=== PATIENT | male | born 1990 | race Hispanic/Latino ===

== ENCOUNTER 2016-12-22 14:19 | Emergency (ER) | payer OTHER ==
[2016-12-22 14:27] VITALS: BMI 28.1
[2016-12-22 14:36] VITALS: BP 125/76; PULSE 98; RESP 18; TEMP 98.6; O2SAT 99
--- NOTE | 2016-12-22 15:02 | C.PDOC ---
History Of Present Illness 26 year old patient presents to the ED complaining of a frontal headache since yesterday. Patient feels pain behind her eyes exacerbated with eye movement. Patient denies fever, nausea, vomiting, photophobia, or sinus congestion. Patient also complains of a sudden onset of a rash to the left inner thigh since yesterday. Patient states it initially looked like bubbles, but now its worse due to thigh chafing. Patient denies any discharge. CO FRONTAL SCHWAB SINCE YEST. FEELS BEHIND EYES WORSE W EYE MOVEMENT. NO FEVER NV PHOTOPHOBIA. DENIES SINUS MARQUES ALSO W NEW ONSET RASH L INNER THIGH SINCE YEST. PS INITIALLY LOOKED LIKE BUBBLES , NOW WORSE DUE TO THIGH CHAFING. NO DC. EXAM HEENT NO PHOTOPHOBIA, NASAL DC, SINUS TEND SKIN 3 LESIONS L INNER THIGH, POSSIBLE OPEN VESICLES/OPEN SORES. NO DC. Time Seen by Provider: 12/22/16 14:42 Chief Complaint (Nursing): Headache History Per: Patient History/Exam Limitations: no limitations Onset/Duration Of Symptoms: Days (yesterday) Current Symptoms Are (Timing): Still Present Severity: Mild Pain Scale Rating Of: 3 Recent travel outside of the [place]: No Past Medical History Reviewed: Historical Data, Nursing Documentation, Vital Signs Vital Signs: Last Vital Signs Temp 98.6 F 12/22/16 14:30 Pulse 98 H 12/22/16 14:30 Resp 18 12/22/16 14:30 BP 125/76 12/22/16 14:30 Pulse Ox 99 12/22/16 16:11 Family History: States: Unknown Family Hx - Social History Hx Alcohol Use: Yes Hx Substance Use: Yes - Immunization History Hx Tetanus Toxoid Vaccination: No Hx Influenza Vaccination: No Hx Pneumococcal Vaccination: No Review Of Systems Except As Marked, All Systems Reviewed And Found Negative. Constitutional: Negative for: Fever Eyes: Positive for: Other ((+) eye movement exacerbates headache; (-) photophobia) ENT: Negative for: Other (sinus congestion) Gastrointestinal: Negative for: Nausea, Vomiting Skin: Positive for: Rash (left inner thigh) Neurological: Positive for: Headache Physical Exam - Physical Exam Skin: Warm, Dry, Other (3 lesions to the left inner thigh, possible open vesicles/open sores. no discharge.) Head: Atraumatic, Normacephalic Eye(s): bilateral: Normal Inspection, PERRL, EOMI, Other ((-)photophobia) Ear(s): Bilateral: Normal Nose: No Discharge, No Other (sinus tenderness) Oral Mucosa: Moist Throat: Normal Neck: Normal ROM, Supple Chest: Symmetrical Cardiovascular: Rhythm Regular Respiratory: Normal Breath Sounds, No Rales, No Rhonchi, No Wheezing Neurological/Psych: Oriented x3 Gait: Steady ED Course And Treatment O2 Sat by Pulse Oximetry: 99 (room air) Pulse Ox Interpretation: Normal - CT Scan/US Head CT Other Rad Studies (CT/US): Read By Radiologist (Dr. Cain, Rick LIMON) CT/US Interpretation: PROCEDURE: CT scan brain dated 12/22/2016. HISTORY: FRONTAL HEADACHE. COMPARISON: None available. TECHNIQUE: Axial computed tomography images were obtained through the head/brain without intravenous contrast. Radiation dose: Total exam DLP = 960.14 mGy-cm. This CT exam was performed using one or more of the following dose reduction techniques: Automated exposure control, adjustment of the mA and/or kV according to patient size, and/or use of iterative reconstruction technique. FINDINGS: HEMORRHAGE: No no acute parenchymal, subarachnoid nor extra-axial hemorrhage. BRAIN: No mass effect or edema. No atrophy or chronic microvascular ischemic changes. No obvious parenchymal nor extra-axial mass or collection seen on this limited noncontrast study. VENTRICLES: Unremarkable. No hydrocephalus. CALVARIUM: No acute calvarial fractures. PARANASAL SINUSES: Unremarkable as visualized. No significant inflammatory changes. MASTOID AIR CELLS: Unremarkable as visualized. No inflammatory changes. OTHER FINDINGS: None. IMPRESSION: No acute intracranial hemorrhage. Disposition Counseled Patient/Family Regarding: Studies Performed, Diagnosis, Need For Followup, Rx Given - Disposition Referrals: your,pmd [Other] Disposition: HOME/ ROUTINE Disposition Time: 16:10 Condition: IMPROVED Prescriptions: Sulfamethoxazole/Trimethoprim [Bactrim DS 800 mg-160 mg] 1 tab PO BID #14 tab Instructions: Acute Headache (ED), Acute Rash (ED) - Clinical Impression Clinical Impression: Headache, Rash and nonspecific skin eruption - Scribe Statement The provider has reviewed the documentation as recorded by the Monseibnancy Davis Provider Attestation: All medical record entries made by the Scribe were at my direction and personally dictated by me. I have reviewed the chart and agree that the record accurately reflects my personal performance of the history, physical exam, medical decision making, and the department course for this patient. I have also personally directed, reviewed, and agree with the discharge instructions and disposition.
--- NOTE | 2016-12-22 16:06 | CT ---
PROCEDURE: CT scan brain dated 12/22/2016 HISTORY: FRONTAL HEADACHE COMPARISON: None available. TECHNIQUE: Axial computed tomography images were obtained through the head/brain without intravenous contrast. Radiation dose: Total exam DLP = 960.14 mGy-cm. This CT exam was performed using one or more of the following dose reduction techniques: Automated exposure control, adjustment of the mA and/or kV according to patient size, and/or use of iterative reconstruction technique. FINDINGS: HEMORRHAGE: No no acute parenchymal, subarachnoid nor extra-axial hemorrhage. BRAIN: No mass effect or edema. No atrophy or chronic microvascular ischemic changes. No obvious parenchymal nor extra-axial mass or collection seen on this limited noncontrast study. VENTRICLES: Unremarkable. No hydrocephalus. CALVARIUM: No acute calvarial fractures. PARANASAL SINUSES: Unremarkable as visualized. No significant inflammatory changes. MASTOID AIR CELLS: Unremarkable as visualized. No inflammatory changes. OTHER FINDINGS: None. IMPRESSION: No acute intracranial hemorrhage.
== END 2016-12-22 16:30 | disposition home or self-care (01) ==
LOC: C.ER 14:19
DX: R51 Headache (principal); R21 Rash and other nonspecific skin eruption